=== PATIENT | male | born 1975 | race Caucasian/White ===

== ENCOUNTER 2016-10-08 10:44 | Emergency (ER) | payer OTHER ==
[~2016-10-08] VITALS: Ht 180.3 cm; Wt 86.0 kg
[~2016-10-08 10:44] MED LIST: PERC5TAB12 PO; ZOFR4TAB3 SL
[2016-10-08 10:50] VITALS: BP 130/72; PULSE 77; RESP 16; TEMP 98.6; O2SAT 96
[2016-10-08] MEDS ORDERED: KETOROLAC TROMETHAMINE 30 MG/ML (IVP) VIAL IVP ONE (11:15)
[2016-10-08] MEDS ORDERED: HYDROmorphone HCL PF 2 MG/ML VIAL IM ONE (11:15)
[2016-10-08] MEDS ORDERED: ONDANSETRON HCL 4 MG/2 ML VIAL IVP ONE (11:15)
[2016-10-08] MEDS ORDERED: SODIUM CHLORIDE 0.9% FLUSH 10 ML FLUSH IVF PRN (11:15)
[2016-10-08] MEDS ORDERED: SODIUM CHLOR 0.9% 1000 ML INJ 1,000 ML IV ONE (11:15)
[2016-10-08] MEDS ORDERED: TAMSULOSIN HCL 0.4 MG CAP PO ONE (11:15)
--- NOTE | 2016-10-08 11:15 | PD ---
HPI . Right flank pain Chief Complaint: Flank/Kidney Pain Time Seen by Provider: 10:55 Travel History International Travel<30 days: No Contact w/Intl Traveler<30days: No Traveled to known affect area: No History of Present Illness HPI Patient presents with the chief complaint right flank pain. Onset was at about 7 AM this morning. He states that the pain has waxed and waned but is getting progressively worse. He currently rates his pain as 8/10. It is a sharp, achy pain. The pain is associated with a "weak stream," frequency of urination, foamy urine. He reports mild nausea. He states that he has had 5 previous kidney stones and has had to have lithotripsy twice. His pain today is similar to those 5 previous episodes. He reports no modifying factors. PFSH Past Medical History Asthma: Yes Diminished Hearing: No Kidney Stones: Yes Medical other: Yes (HERNIATED DISCS X3) Respiratory: Yes (Asthma ) Immunizations Current: Yes Past Surgical History Tonsillectomy: Yes Social History Alcohol Use: Yes Tobacco Use: Yes Substance Use: No Allergies-Medications (Allergen,Severity, Reaction): Coded Allergies: Penicillin (Verified Allergy, Unknown, Patient states he has always been told he's allergic to PCN, 10/08/16) Reported Meds & Prescriptions Reported Meds & Active Scripts Active No Active Prescriptions or Reported Medications Review of Systems Except as stated in HPI: all other systems reviewed are Neg General / Constitutional: No: Fever, Chills Gastrointestinal: Positive: Nausea, Diarrhea (several loose stools this morning had no effect on his flank pain) Genitourinary: Positive: Frequency, Flank Pain, No: Dysuria, Hematuria Physical Exam Narrative GENERAL: Awake and alert and in no acute distress. SKIN: Warm and dry. HEAD: Atraumatic. Normocephalic. EYES: Pupils equal and round. Extraocular movements are intact. ENT: No nasal bleeding or discharge. Mucous membranes pink and moist. NECK: Trachea midline. Neck is supple. CARDIOVASCULAR: Regular rate and rhythm. RESPIRATORY: No accessory muscle use. GASTROINTESTINAL: Abdomen soft, non-tender, nondistended. Back does have right CVA tenderness. MUSCULOSKELETAL: No obvious deformities. No edema. NEUROLOGICAL: Awake and alert. No obvious cranial nerve deficits. Motor grossly within normal limits. Normal speech. PSYCHIATRIC: Appropriate mood and affect; insight and judgment normal. Data Data Last Documented VS Vital Signs Date Time Temp Pulse Resp B/P Pulse Ox O2 Delivery O2 Flow Rate FiO2 10/08/16 12:20 76 20 124/67 98 10/08/16 10:50 98.6 Orders Ua Includes Microscopic (10/08/16 11:06) Abdomen, Kub Only (10/08/16 11:06) Iv Access Insert/Monitor (10/08/16 11:06) Ketorolac Inj (Toradol Inj) (10/08/16 11:15) Ondansetron Inj (Zofran Inj) (10/08/16 11:15) Sodium Chloride 0.9% Flush (Ns Flush) (10/08/16 11:15) Hydromorphone Pf Inj (Dilaudid Pf Inj) (10/08/16 11:15) Tamsulosin (Flomax) (10/08/16 11:15) Sodium Chlor 0.9% 1000 Ml Inj (Ns 1000 M (10/08/16 11:15) Hydromorphone Pf Inj (Dilaudid Pf Inj) (10/08/16 11:45) Labs Laboratory Tests Test 10/08/16 11:28 Urine Collection Type CLEAN CATCH Urine Color YELLOW Urine Turbidity CLEAR Urine pH 5.5 Urine Specific [place] 1.022 Urine Protein NEG mg/dL Urine Glucose (UA) NEG mg/dL Urine Ketones NEG mg/dL Urine Occult Blood TRACE Urine Nitrite NEG Urine Bilirubin NEG Urine Leukocyte Esterase NEG Urine RBC 0-3 /hpf Urine Squamous Epithelial 0-5 /hpf Cells Urine Collection Time 11:28 MDM Medical Decision Making Medical Screen Exam Complete: Yes Emergency Medical Condition: Yes Medical Record Reviewed: Yes (the patient was most recently seen here about a year ago with a kidney stone. He did not have any radiographic studies done at that time. He was treated with Flomax, Percocet and Toradol with good relief of his pain.) Differential Diagnosis Differential diagnosis of flank pain includes but is not limited to kidney stone , pyelonephritis, musculoskeletal pain, PE Narrative Course Patient presents complaining with right flank pain which is similar to previous pain that he has had associated with a kidney stone. Has had to undergo lithotripsy on 2 previous occasions. He has requested a KUB to evaluate the size of the probable stone. He does report that his previous stones have been visible on plain films. The patient will be treated here with IV fluids, IV analgesics, Flomax. Laboratory Tests Test 10/08/16 11:28 Urine Collection Type CLEAN CATCH Urine Color YELLOW Urine Turbidity CLEAR Urine pH 5.5 Urine Specific [place] 1.022 Urine Protein NEG mg/dL Urine Glucose (UA) NEG mg/dL Urine Ketones NEG mg/dL Urine Occult Blood TRACE Urine Nitrite NEG Urine Bilirubin NEG Urine Leukocyte Esterase NEG Urine RBC 0-3 /hpf Urine Squamous Epithelial 0-5 /hpf Cells Urine Collection Time 11:28 Last Impressions Abdomen X-Ray 10/08/16 1106 Signed Impressions: Service Date/Time: Saturday, October 08, 2016 11:43 - CONCLUSION: 1. 6 mm peripherally calcified density overlying the right sacrum in the right lower quadrant with atypical features for ureteral calculus, likely artifactual. This may be confirmed with unenhanced CT examination as clinically warranted. Rory Connors MD Patient reports that his symptoms are markedly improved. He'll be discharged home with outpatient follow-up with urology. He has requested tab rather than Percocet for pain. He states that Percocet makes him very sick to his stomach. Diagnosis Primary Impression: Renal colic on right side Referrals: [facility] Patient Instructions: General Instructions, Narcotic given in the ED, Renal Colic (DC) Med/Other Pt SpecificInfo: Prescription(s) given Scripts Promethazine (Phenergan)25 Mg Mccoyt03 Mg PO Q6H PRN (NAUSEA OR VOMITING) #10 TAB Ref 0 Prov:Ursula Casas MD 10/08/16 Hydrocodone-Acetaminophen ([place])5-325 mg Tab1 Tab PO Q4H PRN (PAIN) #12 TAB Ref 0 Prov:Ursula Casas MD 10/08/16 Tamsulosin (Flomax)0.4 Mg Cap0.4 Mg PO HS #30 CAP Ref 0 Prov:Ursula Casas MD 10/08/16 Disposition: 01 DISCHARGE HOME Condition: Stable Ursula Casas MD Oct 08, 2016 11:15
[2016-10-08 11:32] LABS: BLOOD, URINE TRACE (NEG); GLUCOSE,URINE NEG (NEG); KETONE, URINE NEG (NEG); NITRITE,URINE NEG (NEG); PH, URINE 5.5 (5.0-8.5)
[2016-10-08 11:35] LABS: METHOD OF COLLECTION CLEAN CATCH; URINE COLOR YELLOW (YELLW/STRAW)
[2016-10-08 11:36] LABS: RBC, URINE 0-3 /hpf (0-3); SQUAMOUS EPITHELIAL CELL URINE 0-5 /hpf (0-5)
[2016-10-08 11:39] VITALS: BP 122/68; PULSE 85; RESP 20; O2SAT 98
[2016-10-08] MEDS ORDERED: HYDROmorphone HCL PF 2 MG/ML VIAL IV PUSH ONE (11:45)
--- NOTE | 2016-10-08 12:06 | RADHPO ---
EXAM DATE/TIME: 10/08/2016 11:43 [facility] COMPARISON: No previous studies available for comparison. INDICATIONS : Sudden onset of right flank pain, history of kidney stones MEDICAL HISTORY : Renal calculi. SURGICAL HISTORY : None. ENCOUNTER: Initial ACUITY: 1 day PAIN SCORE: 8/10 LOCATION: Right lower quadrant FINDINGS: There is a 6 mm peripherally calcified density noted overlying the right sacrum near the cephalad SI joint level. The central lucency in this density is somewhat atypical for a ureteral calculus. Severa l small calcifications in the left pelvis are consistent with phleboliths. Otherwise, no abnormal lola cifications are identified. There is a nonobstructive bowel gas pattern. No gross pneumatosis or free air. Osseous structures are intact. CONCLUSION: 1. 6 mm peripherally calcified density overlying the right sacrum in the right lower quadrant with at ypical features for ureteral calculus, likely artifactual. This may be confirmed with unenhanced CT e xamination as clinically warranted. Rory Connors MD on October 08, 2016 at 11:59 Board Certified Radiologist. This report was verified electronically.
[2016-10-08 12:20] VITALS: BP 124/67; PULSE 76; RESP 20; O2SAT 98
[2016-10-08] MEDS ORDERED: PROM25TA10 PO (12:23)
[2016-10-08] MEDS ORDERED: NORC5TAB PO (12:23)
[2016-10-08] MEDS ORDERED: TAMS5CAP PO (12:23)
== END 2016-10-08 12:33 | disposition home or self-care (01) ==
LOC: PHED 10:44
DX: N23 Unspecified renal colic (principal); Z88.0 Allergy status to penicillin
CPT/HCPCS: 74000; 81001; 96361; 96374; 96375; 99284; J1170; J1885; J2405; J7030